=== PATIENT | female | born 1955 | race Caucasian/White ===

== ENCOUNTER 2021-01-09 15:34 | Emergency (ER) | payer BC, SELFPAY ==
[2021-01-09 15:37] VITALS: BP 138/91; BP 151/112; PULSE 112; PULSE 125; RESP 16; RESP 19; TEMP 36.6; O2SAT 94
--- NOTE | 2021-01-09 15:37 | EKG12_ITS ---
Test Reason : STROKE TEAM Blood Pressure : / mmHG Vent. Rate : 091 BPM Atrial Rate : 091 BPM P-R Int : 148 ms QRS Dur : 086 ms QT Int : 400 ms P-R-T Axes : 070 043 034 degrees QTc Int : 492 ms Normal sinus rhythm Prolonged QT Abnormal ECG Confirmed by ESTRADA MEDINA, JOVI ([id number]), news editor BRIA PENA ([id number]) on 01/14/2021 1:28:33 PM Referred By: PAPITO Confirmed By:JOVI DORADO MD
--- NOTE | 2021-01-09 15:37 | CT_ITS ---
We are attempting to reach an attending provider to discuss findings. An addendum with communication details will be sent when the communication is complete. HISTORY: Neuro deficit, acute, stroke suspected. TECHNIQUE: Multiple axial images were obtained of the brain without intravenous contrast. A radiation dose optimization technique was used for this scan. # of images incl. paperwork: 244. COMPARISON: None. FINDINGS: BRAIN PARENCHYMA:Multiple small foci and zones of low attenuation in the cerebral white matter most compatible with chronic small vessel ischemic gliosis. INTRACRANIAL HEMORRHAGE: No acute intracranial hemorrhage. CSF SPACES/MASS EFFECT: Diffuse atrophy with compensatory ventricular enlargement. No midline shift or other significant mass effect. ORBITS: Unremarkable. CALVARIUM: Intact. PARANASAL SINUSES AND MASTOID AIR CELLS: Clear. ASPECTS Score for Acute Strokes: 10. CT/STROKE Brain/Head without Cont IMPRESSION: No acute intracranial process identified. Chronic small vessel ischemic gliosis. Individualized dose optimization techniques were used for this CT. at 1556 Reported and signed by: Merry Tierney MD Electronically Signed: Merry Tierney MD at 15:55 EDT Tel , Service support ,
--- NOTE | 2021-01-09 15:38 | CT_ITS ---
HISTORY: Neuro deficit, acute, stroke suspected. TECHNIQUE: Routine [place]/brain and carotid CT angiogram protocol was performed with IV contrast. Nascet criteria using the distal ICAs for comparison were used for evaluation of stenoses. 2D/3D reconstructions were reviewed. A radiation dose optimization technique was used for this scan. IV Contrast dosage and agent: 100 mL [id number]. Number of images including paperwork: 1607. COMPARISON: CT head same day. FINDINGS: CTA head- ICAs: Mild calcified plaque at the carotid siphons. No significant stenosis at the intracranial/visualized segments. ACAs: No significant stenosis at the visualized segments. MCAs: No significant stenosis at the visualized segments. laundry housekeeper: No significant stenosis at the visualized segments. BASILAR ARTERY: No significant stenosis. VERTEBRAL ARTERIES: No significant stenosis at the intradural/visualized segments. No evidence of intracranial aneurysm or vascular malformation. CTA neck- RIGHT CCA: No occlusion, significant stenosis or dissection. RIGHT ICA: No occlusion or significant stenosis. LEFT CCA: No occlusion, significant stenosis or dissection. LEFT ICA: No occlusion, significant stenosis or dissection. RIGHT VERTEBRAL ARTERY: No occlusion, significant stenosis or dissection. LEFT VERTEBRAL ARTERY: No occlusion, significant stenosis or dissection. AORTIC ARCH AND BRANCHES: Unremarkable. CT/STROKE CTA Head AND Neck W/Con IMPRESSION: No evidence for occlusion in the [place] region. No evidence for significant stenosis in the carotid or vertebral arteries of the neck. Individualized dose optimization techniques were used for this CT. at 1606 Reported and signed by: Mrery Tierney MD N.B. : The above Results were Read Back by Merry Tierney MD to Clifton Talamantes and understanding confirmed on 01/09/2021 16:04:44 (ET). Electronically Signed: Merry Tierney MD at 16:05 EDT Tel , Service support ,
--- NOTE | 2021-01-09 15:39 | EDS_ITS ---
HPI History of Present Illness Chief Complaint: Neuro S/Sx Informant: patient and EMS Onset/Context/Timing Onset: Today Context: Sudden Onset Timing: Continuous Quality and Location: Positive for Slurred Speech, Expressive Aphasia and Receptive Aphasia Current Severity: Moderate Maximum Severity: Moderate Associated Symptoms Associated Symptoms: Positive for Headache; Negative for Nausea, Vomiting and Chest Pain Narrative Narrative: 65-year-old female initially was being brought to the hospital by her who called and they had them calling squad. Patient was then brought in by EMS. Reportedly had a headache last night but was doing well when she went to bed. This morning around 9 AM they noticed that she might have had strokelike symptoms with slurred speech and receptive and expressive aphasia. Patient is a limited informant. I will speak to the he becomes available. Prior similar symptoms: No Recent Illness/Hospitalization: No PFSH PFSH Medical History (Updated 01/09/21 @ 16:[address] Kvng Talamantes MD) Cholecystectomy planned Hypertension Home Medications NK 01/09/21 [History Last Taken Unknown] Allergy/AdvReac Type Severity Reaction Status Date / Time No Known Allergies Allergy Verified 01/09/21 15:56 Surgical History (Updated 01/09/21 @ 15:56 by Amairani Rivera) H/O: hysterectomy Social History Smoking Status: Never smoker ROS ROS ED ROS Narrative Patient with acute strokelike symptoms with receptive and expressive aphasia is a very limited informant. Review of Systems ROS Unobtainable: due to mental status; Denies due to encephalopathy Constitutional Constitutional ED: Denies fever(s) Eyes Eyes: Denies change in vision ENT ENT ED: Denies ear pain Cardiovascular Cardiovascular: Denies chest pain Respiratory/Chest Respiratory/Chest: Denies dyspnea EXAM Physical Exam Narrative Exam Narrative: 65-year-old female brought in for strokelike symptoms. Initial blood pressure 151/112 repeat 238/92. Heart lung abdominal exams are unremarkable. Neurologic exam shows a very subtle left facial droop she has both expressive and receptive aphasia. There is no motor loss of either the upper or lower extremities. No drift. Her NIH score is a 3. Const Vital Signs: 01/09/21 15:37 01/09/21 15:51 01/09/21 15:53 Pulse Rate 112 H 118 H Respiratory Rate 19 H 21 H Blood Pressure 138/91 H 238/92 H Blood Pressure Mean 106 140 Pulse Ox 94 96 Oxygen Delivery Method Room Air Room Air Room Air 01/09/21 16:07 Pulse Rate 91 Respiratory Rate 19 H Blood Pressure 220/93 H Blood Pressure Mean 135 Pulse Ox 94 Oxygen Delivery Method Room Air Positive well nourished and well developed General Appearance ED: well developed HEENT Reports moist mucous membranes atraumatic; Negative for trauma Eyes PERRL and EOMs intact bilaterally Neck no lymphadenopathy, supple and no JVD General: Negative for tenderness Chest Wall inspection of chest normal and palpation of chest normal Resp normal respiratory effort and clear to auscultation bilaterally Auscultation: Negative for rales, rhonchi or wheezes Cardio no murmurs Rate: regular rate Rhythm: regular rhythm Heart Sounds: S1 normal and S2 normal GI normal to inspection, nondistended, normoactive bowel sounds, soft to palpation, non-tender and non-distended Auscultation: normoactive bowel sounds Back/Spine no CVA tenderness Extremity normal to inspection General Extremety ED: Negative for deformity, edema or tenderness General Extremity: Negative for deformity or edema Neuro No oriented x3 Neuro Narrative: Patient presents for possible stroke. She does not have receptive and expressive aphasia. She answers limited questions. She follows limited commands and takes a while to process information to command. She does move all 4 extremities. There is no obvious facial droop. Speech is broken, slow and deliberate. Short phrases. Sensorium / Orientation: alert and confused Psych mental status grossly normal Skin Rashes: no rashes STROKE Vital Signs/Narrative: Vital Signs Pulse Resp BP Pulse Ox 01/09/21 16:07 91 19 H 220/93 H 94 01/09/21 15:53 118 H 21 H 238/92 H 96 01/09/21 15:37 112 H 19 H 138/91 H 94 MDM MDM MDM Narrative Medical decision making narrative: Patient undergo stroke evaluation. Including CT and CTA head neck. Stroke team was initiated. I will be speaking with the stroke neurologist at [facility]. Repeat exam patient has an expressive and receptive aphasia and very mild left facial droop her NIH score is 3 and it is unchanged from her initial presentation. Lab Data Attestation: I reviewed the patient's lab results. Lab results narrative: White count elevated 19. Hemoglobin 15. Portable chest x-ray 1 view interpreted by myself shows no acute abnormality. Borderline cardiomegaly. Labs: Laboratory Results - last 24 hr 01/09/21 15:48 WBC 19.1 H RBC 5.43 H Hgb 15.4 H Hct 46.4 MCV 85.5 MCH 28.4 MCHC 33.2 RDW Std Deviation 40.4 RDW Coeff of Go 13.2 Plt Count 348 MPV 10.6 Immature Gran % (Auto) 0.500 Neut % (Auto) 87.0 H Lymph % (Auto) 5.6 L Baxter % (Auto) 6.6 Eos % (Auto) 0.0 Baso % (Auto) 0.3 Absolute Neuts (auto) 16.6 H Absolute Lymphs (auto) 1.07 Nucleated RBC % 0 Radiography Diagnostic Testing: Radiology Impression Brain CT 01/09/21 15:37 IMPRESSION: No acute intracranial process identified. Chronic small vessel ischemic gliosis. Individualized dose optimization techniques were used for this CT. at 1556 Reported and signed by: Merry Tierney MD Electronically Signed: Merry Tierney MD at 15:55 EDT Tel , Service support , ADDENDUM: 01/09/21 1610 IMPRESSION: No acute intracranial process identified. Chronic small vessel ischemic gliosis. Individualized dose optimization techniques were used for this CT. at 1556 Reported and signed by: Merry Tierney MD N.B. : The above Results were Read Back by Merry Tierney MD to Clifton Talamantes MD, , and understanding confirmed on 01/09/2021 16:03:25 (ET). Electronically Signed: Merry Tierney MD at 15:55 EDT Tel , Service support , Head/Neck CTA 01/09/21 15:38 IMPRESSION: No evidence for occlusion in the [place] region. No evidence for significant stenosis in the carotid or vertebral arteries of the neck. Individualized dose optimization techniques were used for this CT. at 1606 Reported and signed by: Merry Tierney MD N.B. : The above Results were Read Back by Merry Tierney MD to Clifton Talamantes and understanding confirmed on 01/09/2021 16:04:44 (ET). Electronically Signed: Merry Tierney MD at 16:05 EDT Tel , Service support , ADDENDUM: 01/09/21 1613 IMPRESSION: No evidence for occlusion in the [place] region. No evidence for significant stenosis in the carotid or vertebral arteries of the neck. Individualized dose optimization techniques were used for this CT. at 1606 Reported and signed by: Merry Tierney MD N.B. : The above Results were Read Back by Merry Tierney MD to Clifton Talamantes and understanding confirmed on 01/09/2021 16:04:44 (ET). Electronically Signed: Merry Tierney MD at 16:05 EDT Tel , Service support , Radiologist spoke with me and did not see anything specific on the CT brain w ithout contrast and again on the CTA head and neck. I discussed this with the neurologist at [facility] who is also reviewed the films and agrees. The patient is not a TPA candidate due to the timing of her onset of symptoms. And most likely at this time will not be a retrieval candidate due to the results from the CTA head neck and she will be transferred to [facility] either by ground or air depending on the length of time is good to take for transfer. Rhythm Strip Rhythm Strip: Sinus Rhythm Rate: 91 Ectopy: None EKG Initial EKG: Attestation: I personally reviewed and interpreted this EKG as follows: Interpretation: Sinus Rhythm and No Acute Injury Pattern Comments: Normal sinus rhythm rate 91 no acute signs of [place] or ischemia. Prior EKG tracings: not available for review Stroke Documentation Questions Stroke Team Activated: Yes Reviewed Inclusion/Exclusion criteria: Yes Was Patient considered for Endovascular Intervention?: Yes IV Alteplase (t-PA) Administered: No No contraindications for IV Alteplase (t-PA) administration.: No Alteplase (t-PA) risks, benefits, alternative discussed: Yes Critical Care Time Critical Care Time: Yes Critical care time (excluding procedures): 30-74 minutes, Including time spent:, Discussing w/Patient &/or Family/Web Application Developer, Discussing w/Consultants, Arranging Admission or Transfer and Performing Direct Patient Care at Bedside Discharge Plan Triage Chief Complaint: Neuro S/Sx ED Provider: Kvng Talamantes Dx/Rx/DC Orders Clinical Impression: Acute stroke due to ischemia, Hypertension Prescriptions: No Action NK RF: 0 Primary Care Provider: Chris Rashid Referrals: Chris Rashid MD [Primary Care Provider] - Disposition Disposition: Acute Care Hospital
--- NOTE | 2021-01-09 15:43 | NURSING ---
STROKE ALERT CALLED PRIOR TO ARRIVAL [id number]
[2021-01-09 15:52] VITALS: BMI 32.4
[2021-01-09 15:53] VITALS: BP 238/92; PULSE 118; RESP 21; O2SAT 96
[2021-01-09] MEDS: Labetalol (Prefilled) 20 MG/4 ML IV (16:00)
--- NOTE | 2021-01-09 16:05 | RAD_ITS ---
STUDY: X-RAY CHEST REASON FOR EXAM: Female, 65 years old. Neuro deficit, acute, stroke suspected TECHNIQUE: Single frontal view of the chest. COMPARISON: Chest x-ray 10/20/2011 FINDINGS: The lungs are clear and expanded. There is no demonstrated pleural abnormality. Cardiomegaly. Normal mediastinum and stuart. Normal visualized pulmonary arteries. Normal visualized aortic arch and descending thoracic aorta. Normal visualized thoracic spine. Normal visualized ribs, clavicles, and shoulders. There is no demonstrated abnormality of the visualized soft tissue structures of the upper abdomen. RAD/Chest 1 View IMPRESSION: No acute disease Electronically Signed: Kodi Lindsey MD at 16:53 EDT , Service support ,
[2021-01-09 16:07] VITALS: BP 220/93; PULSE 91; RESP 19; O2SAT 94
[2021-01-09 16:08] LABS: Absolute Lymphocyte Count 1.07 X10^3/uL (0.83-4.51); Absolute Neutrophil Count 16.6 X10^3/uL (2.0-7.7); Basophil# 0.06 X10^3/uL; Basophil% 0.3 % (0-1); Hematocrit 46.4 % (37-47); Hemoglobin 15.4 g/dL (12.0-15.0); Lymphocyte # 1.07 X10^3/ul (0.83-4.51); Lymphocyte % 5.6 % (19-41); Mean Corp Hgb Conc 33.2 g/dL (32-36); Mean Corpuscular Hgb 28.4 pg (27.0-32.0); Mean Corpuscular Volume 85.5 fL (81-99); Mean Platelet Vol. 10.6 fl (6.2-12.0); Monocyte# 1.25 X10^3/uL; Monocyte% 6.6 % (0-10); NRBC Flagged by Analyzer 0 % (0-5); Neutrophil # 16.59 X10^3/uL (2.7-7.7); Platelet Count 348 K/mm3 (150-450); RBC Distribution Width CV 13.2 % (11.6-14.6); RBC Distribution Width SD 40.4 fl (35.1-43.9); Red Blood Count 5.43 M/mm3 (4.2-5.4); White Blood Count 19.1 K/mm3 (4.4-11.0)
[2021-01-09 16:16] VITALS: BP 220/93; PULSE 98; RESP 16; TEMP 36.9; O2SAT 98; BMI 32.4
[2021-01-09 16:30] VITALS: BP 219/71; PULSE 93; RESP 16; O2SAT 95
[2021-01-09 16:36] LABS: International Normalized Ratio 1.2; Prothrombin Time (Protime)PT. 14.4 SECONDS (11.7-14.9)
[2021-01-09 16:37] LABS: Partial Thromboplast Time 26.9 Seconds (24.1-36.2)
[2021-01-09 16:42] LABS: Anion Gap 8 (5-15); BUN 14 mg/dL (7-18); BUN/Creat Ratio 15.6 RATIO (10-20); Calcium,Total 8.7 mg/dL (8.5-10.1); Chloride 96 mmol/L (98-107); EST Glomerular Filtration Rate 67 mL/min (>60); Est Glom Filt Rate - Afr Amer 81 mL/min (>60); Estimated Creatinine Clearance 54.53 ml/min; Glucose 194 mg/dL (74-106); Potassium 3.7 mmol/L (3.5-5.1); Sodium Level 133 mmol/L (136-145); Troponin-I HS 43.7 pg/mL (3.0-53.7)
== END 2021-01-09 16:42 | disposition short-term general hospital (02) ==
PROVIDERS: Emergency Provider Emergency Medicine; PCP Internal Medicine
DX: I63.9 Cerebral infarction, unspecified (principal); R47.01 Aphasia; R29.810 Facial weakness; I10 Essential (primary) hypertension; R29.703 NIHSS score 3
CPT/HCPCS: 70450; 70496; 70498; 71045; 80048; 84484; 85025; 85610; 85730; 93005; 96374; 99285; Q9967; A4216

== ENCOUNTER 2021-02-27 01:30 | Emergency (ER) | payer BC, SELFPAY ==
[2021-02-27] VITALS (8 sets, daily range): BP systolic 128–209; BP diastolic 64–87; PULSE 69–101; RESP 14–16; TEMP 35.9; O2SAT 93–96; BMI 30.3
--- NOTE | 2021-02-27 02:24 | EDS_ITS ---
HPI History of Present Illness Chief Complaint: Hypertension Informant: patient and spouse/S.O. Onset/Context/Timing Onset: Weeks (1-2) Timing: Waxes and wanes Quality: SBP anywhere from 140-220; feels agitated/shaky when symptomatic Location: all over Narrative Narrative: Patient presents with elevated blood pressure. She is currently asy mptomatic with a blood pressure of 202/87. She states she recently had a small ischemic stroke and was managed at [facility] after being transferred there from here. She was discharged on blood pressure medication including lisinopril 20 mg twice daily, carvedilol 12.5 mg twice daily, and extended release nifedipine 60 mg that she was taking twice daily. Her blood pressures were mostly in the 140s sometimes in the 160-180 range, which is when she would get symptoms. She saw a pharmacist who told her that the nifedipine 60 mg should not be taken twice daily, just once, and raise concerns about the fact that she was taking it twice daily. She then saw a local nurse practitioner who started managing her blood pressure medications, and discontinued the nifedipine completely about 2 weeks ago or a little more. Instead she was put on amlodipine 5 mg, and gradually her pressures have been slowly increasing. She has hydralazine 50 mg to take as needed for blood pressures over 160. She states she checks her blood pressure 5 times daily out of concerns for going because of the fact that she had a stroke. She has no residual deficits from the stroke. When she gets symptoms in her pressure is elevated, and those do tend to correlate when she is around 200 or so although she has no symptoms now, she just feels shaky and agitated according to the patient. No headaches, focal neurologic symptoms of any type, nor chest discomfort or trouble breathing or syncope presyncope. She has had urinary frequency for the last couple days without dysuria or hematuria. [facility] Medical History Cholecystectomy planned Hypertension Stroke/cerebrovascular accident Home Medications amlodipine 10 mg PO DAILY 30 Days #0 tab 02/27/21 [Rx Last Taken Unknown] atorvastatin 40 mg PO QHS 02/27/21 [History Last Taken Unknown] carvedilol 12.5 mg PO Q12H 02/27/21 [History Last Taken Unknown] hydralazine 50 mg PO TID PRN 02/27/21 [History Last Taken Unknown] lisinopril 20 mg PO BID 02/27/21 [History Last Taken Unknown] Allergy/AdvReac Type Severity Reaction Status Date / Time No Known Allergies Allergy Verified 01/09/21 15:56 Surgical History H/O: hysterectomy Social History Smoking Status: Never smoker ROS ROS ED Constitutional Constitutional ED: Denies chills or fever(s) Eyes Eyes: Denies change in vision or diplopia ENT ENT ED: Denies rhinorrhea or sore throat Cardiovascular Cardiovascular: Denies chest pain or palpitations Respiratory/Chest Respiratory/Chest: Denies cough or dyspnea Gastrointestinal Gastrointestinal: Denies abdominal pain, diarrhea, nausea or vomiting Genitourinary Genitourinary ED: Reports urinary frequency; Denies dysuria or hematuria Musculoskeletal Musculoskeletal: Denies back pain or neck pain Integumentary Denies abscess or rash Neurologic Neurologic: Denies headache(s), paresthesias or weakness Psychiatric Psychiatric: Denies anxiety or suicidal thoughts EXAM Physical Exam Const Vital Signs: 02/27/21 01:32 02/27/21 02:06 02/27/21 02:45 Temperature 96.6 F L Temperature Source Temporal Pulse Rate 101 H Respiratory Rate 16 Blood Pressure 209/81 H 202/87 H 152/66 H Blood Pressure Mean 123 125 94 Pulse Ox 95 Oxygen Delivery Method Room Air 02/27/21 03:32 02/27/21 04:02 02/27/21 04:45 Temperature Temperature Source Pulse Rate 87 71 Respiratory Rate 14 Blood Pressure 178/78 H 155/67 H 137/64 H Blood Pressure Mean 111 96 88 Pulse Ox 93 Oxygen Delivery Method Room Air 02/27/21 05:07 Temperature Temperature Source Pulse Rate 69 Respiratory Rate 16 Blood Pressure 128/64 H Blood Pressure Mean 85 Pulse Ox 95 Oxygen Delivery Method Room Air Positive well nourished and well developed General Appearance ED: well developed and NAD HEENT Reports moist mucous membranes normocephalic and atraumatic Eyes PERRL and EOMs intact bilaterally Neck full ROM and supple Resp normal respiratory effort and clear to auscultation bilaterally Cardio regular rate, regular rhythm and no murmurs GI non-tender and non-distended Auscultation: normoactive bowel sounds Palpation: soft Back/Spine no CVA tenderness General Back: other FROM Extremity normal to inspection General Extremety ED: Negative for edema, pulses abnormal or tenderness General Extremity: Negative for edema or pulses abnormal Neuro oriented x3, CN's II-XII intact bilaterally, no sensory deficits noted and gait normal Sensorium / Orientation: awake and alert Motor Exam: strength 5/5 throughout Skin no rashes or lesions noted and no wounds MDM MDM MDM Narrative Medical decision making narrative: Ordered a BMP, as well as an IV with labetalol 20 mg. Patient took hydralazine 50 mg orally about 1.5 hours prior to coming. However IV access was not able to easily be obtained, so she was not given the labetalol and on recheck her blood pressure was 155 systolic, later in the 170s. She was still asymptomatic. Instead of the labetalol we gave her clonidine 0.2 mg orally. On recheck her blood pressure is 137/64, and then 128/64 with her other vital signs being normal including a pulse of 69. She and her are asking a lot of questions about what they should do with regards to her blood pressure. I advised them that as an EM physician at 4 AM, it would not be preferable that I manage their long-term outpatient medications. For now, however, I think it would be reasonable to double the amlodipine that she has been on for 2 weeks which is only at 5 mg daily since she is off of the nifedipine, and to follow-up closely with her doctor. She is planning on seeing Dr. Adams here in [facility] and is also referred to neurology although I advised them that it is possible that neurology may not want to manage her blood pressure medications. Alternatively, she may also call [facility] to discuss post- stroke blood pressure medication recommendations regarding the nifedipine. Lab Data Attestation: I reviewed the patient's lab results. Labs: Laboratory Results - last 24 hr 02/27/21 02/27/21 02:02 02:30 Sodium 138 Potassium 4.3 Chloride 106 Carbon Dioxide 25.0 Anion Gap 7 BUN 10 Creatinine 0.63 Estim Creat Clear Calc 77.90 Est GFR (MDRD) Af Amer 123 Est GFR (MDRD) Non-Af 101 BUN/Creatinine Ratio 15.9 Glucose 174 H Calcium 9.8 Urine Color Yellow Urine Clarity Clear Urine pH 7.0 Ur Specific [place] 1.010 Urine Protein 30 H Urine Glucose (UA) 50 H Urine Ketones Negative Urine Occult Blood Negative Urine Nitrite Negative Urine Bilirubin Negative Urine Urobilinogen Normal Ur Leukocyte Esterase 100 H Urine RBC 0 SEEN Urine WBC 0-5 SEEN Ur Squamous Epith Cells 0-5 SEEN Urine Bacteria 0 SEEN Urine Mucus 0 SEEN Discharge Plan Triage Chief Complaint: Hypertension ED Provider: Ronald Espinosa Dx/Rx/DC Orders Clinical Impression: Episode of hypertension Instructions: ED Hypertension, Established Prescriptions: Continued atorvastatin 40 mg Tablet 40 mg PO QHS RF: 0 carvedilol 12.5 mg Tablet 12.5 mg PO Q12H RF: 0 lisinopril 20 mg Tablet 20 mg PO BID RF: 0 hydralazine 50 mg Tablet 50 mg PO TID PRN (Reason: Hypertension) RF: 0 Changed amlodipine 5 mg Tablet 10 mg PO DAILY 30 Days Qty: 0 RF: 0 Primary Care Provider: Clifton Adams Referrals: Clifton Adams MD [Primary Care Provider] - As soon as possible Ran Mcnally MD [STAFF PHYSICIAN] - (call for appt) Disposition Disposition: Home, Self Care
[2021-02-27 02:37] LABS: Bacteria 0 SEEN /hpf (None Seen); Mucous, Urine 0 SEEN /hpf (<or=2+); Red Blood Cells-Urine 0 SEEN /hpf (0-5)
[2021-02-27 02:38] LABS: Color, Urine Yellow (Yellow); Glucose, Dipstick 50 mg/dl (Normal); Ketone-Dipstick Negative (Negative); Leukocyte Esterase-Dipstick 100 /ul (Negative); Nitrite-Dipstick Negative (Negative); Occult Blood-Urine Negative /ul (Negative); Protein-Dipstick 30 mg/dl (Negative); Urine Bilirubin Dipstick Negative (Negative); Urine Clarity Clear (Clear); Urine Urobilinogen Normal (Normal)
[2021-02-27 02:44] LABS: Squamous Epithelial Cells - UA 0-5 SEEN /hpf (5-10); White Blood Cells 0-5 SEEN /hpf (0-5)
[2021-02-27 02:47] LABS: Anion Gap 7 (5-15); BUN 10 mg/dL (7-18); BUN/Creat Ratio 15.9 RATIO (10-20); Calcium,Total 9.8 mg/dL (8.5-10.1); Chloride 106 mmol/L (98-107); Creatinine, Serum 0.63 mg/dL (0.55-1.02); EST Glomerular Filtration Rate 101 mL/min (>60); Est Glom Filt Rate - Afr Amer 123 mL/min (>60); Glucose 174 mg/dL (74-106); Potassium 4.3 mmol/L (3.5-5.1); Sodium Level 138 mmol/L (136-145)
[2021-02-27] MEDS: cloNIDine HCl 0.2 MG Tablet PO (04:02)
== END 2021-02-27 05:19 | disposition home or self-care (01) ==
PROVIDERS: Emergency Provider Emergency Medicine; PCP Family Medicine
DX: I10 Essential (primary) hypertension (principal); Z79.899 Other long term (current) drug therapy; Z86.73 Personal history of transient ischemic attack (TIA), and cerebral infarction without residual deficits
CPT/HCPCS: 80048; 81001; 99285; A4216